=== PATIENT | female | born 1950 | race Hispanic/Latino ===

== ENCOUNTER 2020-03-18 11:21 | Inpatient (IN) | payer OTHER, MEDICARE ==
[~2020-03-18] VITALS: Ht 154.9 cm; Wt 59.0 kg
[2020-03-18] MEDS ORDERED: ZOSYN 3.375GM+NS 50ML 50 ML IV ONE ×2 (12:26→20:49)
[2020-03-18] MEDS ORDERED: 0.9%NACL 1000ML 1,000 ML IV ONE (12:27)
[2020-03-18 12:32] LABS: BASOPHILS % (AUTO) 0.3 % (0.0-5.0); EOSINOPHILS % (AUTO) 0.5 % (0.0-8.0); HEMATOCRIT 35.2 % (36-48); LYMPHOCYTES % (AUTO) 13.3 % (21.0-51.0); MEAN CORPUSCULAR HEMOGLOBIN 26.1 pg (27.0-33.0); MEAN CORPUSCULAR HGB CONC 32.7 g/dL (32.0-36.0); MEAN CORPUSCULAR VOLUME 79.8 fL (79-99); MONOCYTES % (AUTO) 8.2 % (3.0-13.0); NEUTROPHILS % (AUTO) 77.4 % (40.0-77.0); PLATELET COUNT (AUTO) 214 K/uL (130-400); RED BLOOD CELL COUNT(AUTO) 4.41 MIL/uL (4.00-5.50); RED CELL DISTRIBUTION WIDTH 12.9 % (11.0-15.5)
[2020-03-18 12:43] LABS: INR 1.01 (0.85-1.15); PROTHROMBIN TIME 10.8 SEC (9.6-11.6)
[2020-03-18 12:44] LABS: PARTIAL THROMBOPLASTIN TIME 29.1 SEC (26.3-35.5)
[2020-03-18 12:46] LABS: CREATININE 0.8 mg/dL (0.5-1.5); POTASSIUM 4.6 mmol/L (3.5-5.1)
[2020-03-18 12:51] LABS: ALBUMIN 3.3 g/dL (3.5-5.0); BILIRUBIN,TOTAL 0.4 mg/dL (0.2-1.0); TOTAL PROTEIN, SERUM 7.9 g/dL (6.0-8.3)
[2020-03-18] MEDS ORDERED: VANCOMYCIN 1G/250ML KIT 250 ML IV ONE (13:07)
[2020-03-18 13:23] LABS: APPEARANCE,URINE Clear (CLEAR); BILIRUBIN,URINE Negative (NEGATIVE); COLOR,URINE Yellow (YELLOW); GLUCOSE, URINE (UA) >=1000 mg/dL (NEGATIVE); KETONES,URINE Negative (NEGATIVE); LEUKOCYTE ESTERASE ,URINE Moderate (NEGATIVE); NITRATE,URINE Negative (NEGATIVE); OCCULT BLOOD,URINE Negative (NEGATIVE); PROTEIN,URINE Negative (NEGATIVE); UROBILINOGEN,URINE 0.2 mg/dL (0.2-1.0)
[2020-03-18 13:49] LABS: RBC,URINE None Seen /HPF (0-1)
[2020-03-18 13:50] LABS: BACTERIA,URINE Moderate /HPF (None Seen); SQUAMOUS EPITHELIAL CELL,UR Few /HPF (0-2)
[2020-03-18] MEDS ORDERED: DEXTROSE 50%-WATER 50 ML DISP.SYRIN IV PRN (14:00)
[2020-03-18] MEDS ORDERED: ACETAMINOPHEN 325 MG TAB PO PRN (14:00)
[2020-03-18] MEDS ORDERED: GLUCAGON 1MG KIT 1 MG ML IM PRN (14:00)
[2020-03-18] MEDS ORDERED: ONDANSETRON 4MG TABLET PO PRN (14:00)
[2020-03-18] MEDS ORDERED: VANCOMYCIN PROTOCOL PER PHARMACY IV SCH (14:00)
[2020-03-18] MEDS: ZOSYN 3.375GM+NS 50ML 50 ML IV SCH ×2 (14:00→22:00)
[2020-03-18] MEDS ORDERED: COMPOUND IV REFRIGERATED 1 EACH IVSOLN MISC PRN (14:45)
[2020-03-18] MEDS: INSULIN HUMULIN R 100 UNIT/ML 3ML SQ SCH ×2 (16:30→21:00)
[2020-03-18] MEDS ORDERED: INSULIN HUMULIN R 100 UNIT/ML 3ML ONE (20:52)
[2020-03-18] MEDS: VANCOMYCIN 750MG + NS 250 ML IV SCH ×2 (21:00)
[2020-03-18] MEDS ORDERED: ATORVASTATIN 40 MG TABLET ONE (22:30)
[2020-03-18 23:40] VITALS: BP 169/79
[2020-03-19 04:01] VITALS: BP 128/62
[2020-03-19] MEDS: ZOSYN 3.375GM+NS 50ML 50 ML IV SCH ×3 (06:02→20:49)
[2020-03-19] MEDS: INSULIN HUMULIN R 100 UNIT/ML 3ML SQ SCH ×4 (06:08→21:30)
[2020-03-19 06:26] LABS: CREATININE 0.8 mg/dL (0.5-1.5); MAGNESIUM 1.9 mg/dL (1.80-2.40)
[2020-03-19 06:47] LABS: HEMATOCRIT 32.4 % (36-48); MEAN CORPUSCULAR HEMOGLOBIN 26.2 pg (27.0-33.0); MEAN CORPUSCULAR HGB CONC 32.7 g/dL (32.0-36.0); RED BLOOD CELL COUNT(AUTO) 4.05 MIL/uL (4.00-5.50); RED CELL DISTRIBUTION WIDTH 12.9 % (11.0-15.5)
[2020-03-19 07:00] LABS: HEMOGLOBIN A1C 11.5 % (4.0-6.0)
[2020-03-19 07:30] VITALS: BP 133/60
[2020-03-19] MEDS ORDERED: MORPHINE 2 MG SYG IVP PRN (10:00)
[2020-03-19] MEDS: VANCOMYCIN 750MG + NS 250 ML IV SCH ×4 (10:34→20:48)
[2020-03-19] MEDS: PANTOPRAZOLE 40 MG TAB DR PO SCH (10:34)
[2020-03-19] MEDS: ENOXAPARIN SODIUM 30 MG/0.3 ML SQ SCH (10:35)
[2020-03-19] MEDS ORDERED: CALC-866 PO (10:52)
[2020-03-19] MEDS ORDERED: INSU200I4 SQ (10:52)
[2020-03-19] MEDS ORDERED: ZINC50TA64 PO (10:52)
[2020-03-19] MEDS ORDERED: TRAZ-253 PO (10:52)
[2020-03-19] MEDS ORDERED: LOSA25TA41 PO (10:52)
[2020-03-19 11:12] VITALS: BP 137/72
[2020-03-19 16:08] VITALS: BP 141/70
[2020-03-19] MEDS: ASPIRIN 81MG CHEW TAB PO SCH (17:45)
[2020-03-19] MEDS: MAGNESIUM 2GM PREMIX 50ML 50 ML IV PRN (17:48)
[2020-03-19 20:23] VITALS: BP 138/63
[2020-03-19] MEDS: ATORVASTATIN 20 MG TABLET PO SCH (20:49)
[2020-03-19 23:33] VITALS: BP 115/58
[2020-03-20 03:32] VITALS: BP 136/66
[2020-03-20] MEDS: ZOSYN 3.375GM+NS 50ML 50 ML IV SCH ×3 (05:20→21:33)
[2020-03-20 06:11] LABS: HEMATOCRIT 32.6 % (36-48); MEAN CORPUSCULAR HEMOGLOBIN 25.6 pg (27.0-33.0); MEAN CORPUSCULAR HGB CONC 31.9 g/dL (32.0-36.0); MEAN CORPUSCULAR VOLUME 80.3 fL (79-99); RED BLOOD CELL COUNT(AUTO) 4.06 MIL/uL (4.00-5.50); RED CELL DISTRIBUTION WIDTH 12.8 % (11.0-15.5); WHITE BLOOD COUNT (AUTO) 10.7 K/uL (4.8-10.8)
[2020-03-20] MEDS: INSULIN HUMULIN R 100 UNIT/ML 3ML SQ SCH ×4 (06:12→20:36)
[2020-03-20 06:30] LABS: CREATININE 0.8 mg/dL (0.5-1.5); POTASSIUM 4.3 mmol/L (3.5-5.1)
[2020-03-20 07:33] VITALS: BP 108/57
[2020-03-20] MEDS: PANTOPRAZOLE 40 MG TAB DR PO SCH (07:46)
[2020-03-20] MEDS: ASPIRIN 81MG CHEW TAB PO SCH (07:46)
[2020-03-20] MEDS: ENOXAPARIN SODIUM 30 MG/0.3 ML SQ SCH (07:47)
[2020-03-20] MEDS: MAGNESIUM 2GM PREMIX 50ML 50 ML IV PRN (07:48)
[2020-03-20] MEDS: VANCOMYCIN 750MG + NS 250 ML IV SCH ×4 (10:14→20:09)
[2020-03-20 11:19] VITALS: BP 173/78
[2020-03-20 16:00] VITALS: BP 165/72
[2020-03-20] MEDS ORDERED: HYDROMORPHONE 2 MG VIAL (2MG/ML) ONE (19:16)
[2020-03-20 20:00] VITALS: BP 166/60
[2020-03-20] MEDS: ATORVASTATIN 20 MG TABLET PO SCH (20:08)
[2020-03-20] MEDS: HYDROMORPHONE 1 MG INJ IVP PRN ×4 (20:52→23:59)
[2020-03-20 23:46] VITALS: BP 135/55
[2020-03-21] VITALS (12 sets, daily range): BP systolic 107–135; BP diastolic 57–72
[2020-03-21] MEDS: HYDROMORPHONE 1 MG INJ IVP PRN ×5 (01:05→05:06)
[2020-03-21 04:55] LABS: HEMATOCRIT 31.9 % (36-48); MEAN CORPUSCULAR HEMOGLOBIN 25.7 pg (27.0-33.0); MEAN CORPUSCULAR HGB CONC 32.3 g/dL (32.0-36.0); MEAN CORPUSCULAR VOLUME 79.6 fL (79-99); RED BLOOD CELL COUNT(AUTO) 4.01 MIL/uL (4.00-5.50); RED CELL DISTRIBUTION WIDTH 12.6 % (11.0-15.5); WHITE BLOOD COUNT (AUTO) 10.4 K/uL (4.8-10.8)
[2020-03-21 05:07] LABS: CREATININE 0.9 mg/dL (0.5-1.5); POTASSIUM 4.4 mmol/L (3.5-5.1)
[2020-03-21] MEDS: ZOSYN 3.375GM+NS 50ML 50 ML IV SCH ×3 (05:09→20:23)
[2020-03-21] MEDS: INSULIN HUMULIN R 100 UNIT/ML 3ML SQ SCH ×3 (05:50→20:13)
[2020-03-21] MEDS: ENOXAPARIN SODIUM 30 MG/0.3 ML SQ SCH (09:00)
[2020-03-21] MEDS: ASPIRIN 81MG CHEW TAB PO SCH (09:33)
[2020-03-21] MEDS: PANTOPRAZOLE 40 MG TAB DR PO SCH (09:33)
[2020-03-21] MEDS: VANCOMYCIN 750MG + NS 250 ML IV SCH ×4 (09:33→20:59)
[2020-03-21] MEDS ORDERED: NITROGLYCERIN 2 MG VIAL IV ONE (13:07)
[2020-03-21] MEDS ORDERED: NICARDIPINE 25MG INJ IV ONE (13:07)
[2020-03-21] MEDS ORDERED: HEPARIN 10,000 UNIT/10ML (1,000 UNIT/ML) VIAL ONE (13:07)
[2020-03-21] MEDS ORDERED: LIDOCAINE HCL 400MG/20ML VIAL ONE (13:08)
[2020-03-21] MEDS ORDERED: IODIXANOL 320 MG/ML 100 ML VIAL ONE (13:08)
[2020-03-21] MEDS ORDERED: FENTANYL CITRATE PF 50 MCG/1 ML 2ML VIAL ONE (13:08)
[2020-03-21] MEDS ORDERED: MIDAZOLAM HCL 1 MG/ML 2ML VIAL ONE (13:08)
[2020-03-21] MEDS ORDERED: CLOPIDOGREL 300MG TAB ONE (14:55)
[2020-03-21] MEDS ORDERED: LABETALOL 20MG SYG IV ONE (15:40)
[2020-03-21] MEDS ORDERED: 0.9%NACL 1000ML 1,000 ML IV SCH (16:00)
[2020-03-21] MEDS ORDERED: SOLU-MEDROL 125MG VIAL ONE (16:01)
[2020-03-21] MEDS ORDERED: DiphenhydrAMINE HCL 50 MG/ML VIAL ONE (16:01)
[2020-03-21] MEDS: ATORVASTATIN 20 MG TABLET PO SCH (20:23)
[2020-03-22 00:11] VITALS: BP 117/57
[2020-03-22 04:35] VITALS: BP 134/74
[2020-03-22 05:08] LABS: HEMATOCRIT 31.6 % (36-48); MEAN CORPUSCULAR HEMOGLOBIN 25.6 pg (27.0-33.0); MEAN CORPUSCULAR HGB CONC 32.3 g/dL (32.0-36.0); MEAN CORPUSCULAR VOLUME 79.4 fL (79-99); RED BLOOD CELL COUNT(AUTO) 3.98 MIL/uL (4.00-5.50); RED CELL DISTRIBUTION WIDTH 12.6 % (11.0-15.5); WHITE BLOOD COUNT (AUTO) 14.2 K/uL (4.8-10.8)
[2020-03-22] MEDS: ZOSYN 3.375GM+NS 50ML 50 ML IV SCH ×3 (05:41→22:16)
[2020-03-22 05:53] LABS: CREATININE 1.2 mg/dL (0.5-1.5); POTASSIUM 4.9 mmol/L (3.5-5.1)
[2020-03-22] MEDS: INSULIN HUMULIN R 100 UNIT/ML 3ML SQ SCH ×5 (05:55→20:06)
[2020-03-22] MEDS: INSULIN GLARGINE 100 UNITS/ML 10 ML VIAL SQ SCH (06:42)
[2020-03-22 08:00] VITALS: BP 139/74
[2020-03-22] MEDS: ASPIRIN 81MG CHEW TAB PO SCH (09:19)
[2020-03-22] MEDS: CLOPIDOGREL 75MG TAB PO SCH (09:19)
[2020-03-22] MEDS: PANTOPRAZOLE 40 MG TAB DR PO SCH (09:19)
[2020-03-22] MEDS: ENOXAPARIN SODIUM 30 MG/0.3 ML SQ SCH (09:20)
[2020-03-22 12:00] VITALS: BP 139/66
[2020-03-22] MEDS: VANCOMYCIN 750MG + NS 250 ML IV SCH ×4 (12:03→20:09)
[2020-03-22 16:00] VITALS: BP 167/83
[2020-03-22] MEDS ORDERED: DiphenhydrAMINE HCL 50 MG/ML VIAL IVP PRN (16:30)
[2020-03-22] MEDS ORDERED: SOLU-MEDROL 125MG VIAL IVP PRN (16:30)
[2020-03-22] MEDS: AMLODIPINE 5 MG TAB PO SCH (17:45)
[2020-03-22] MEDS ORDERED: CLONIDINE HCL 0.1 MG TABLET PO PRN (17:45)
[2020-03-22] MEDS ORDERED: AMLODIPINE 5 MG TAB ONE (17:53)
[2020-03-22 20:00] VITALS: BP 147/78
[2020-03-22] MEDS: ATORVASTATIN 20 MG TABLET PO SCH (20:08)
[2020-03-22] MEDS: LACTATED RINGERS 1000ML 1,000 ML IV SCH (22:16)
[2020-03-23] VITALS (8 sets, daily range): BP systolic 88–158; BP diastolic 55–89
[2020-03-23 03:58] LABS: HEMATOCRIT 28.6 % (36-48); MEAN CORPUSCULAR HEMOGLOBIN 26.4 pg (27.0-33.0); MEAN CORPUSCULAR HGB CONC 33.2 g/dL (32.0-36.0); MEAN CORPUSCULAR VOLUME 79.4 fL (79-99); RED BLOOD CELL COUNT(AUTO) 3.6 MIL/uL (4.00-5.50); RED CELL DISTRIBUTION WIDTH 12.8 % (11.0-15.5); WHITE BLOOD COUNT (AUTO) 11.8 K/uL (4.8-10.8)
[2020-03-23 04:12] LABS: INR 1.04 (0.85-1.15); PROTHROMBIN TIME 11.1 SEC (9.6-11.6)
[2020-03-23 04:14] LABS: PARTIAL THROMBOPLASTIN TIME 25.4 SEC (26.3-35.5)
[2020-03-23 04:16] LABS: CREATININE 0.8 mg/dL (0.5-1.5); POTASSIUM 4.2 mmol/L (3.5-5.1)
[2020-03-23] MEDS: ZOSYN 3.375GM+NS 50ML 50 ML IV SCH ×3 (05:13→20:33)
[2020-03-23] MEDS: INSULIN HUMULIN R 100 UNIT/ML 3ML SQ SCH ×4 (05:37→20:09)
[2020-03-23] MEDS ORDERED: NITROGLYCERIN 2 MG VIAL IV ONE (07:28)
[2020-03-23] MEDS ORDERED: HEPARIN 10,000 UNIT/10ML (1,000 UNIT/ML) VIAL ONE (07:28)
[2020-03-23] MEDS ORDERED: MIDAZOLAM HCL 1 MG/ML 2ML VIAL ONE (07:28)
[2020-03-23] MEDS ORDERED: NICARDIPINE 25MG INJ IV ONE (07:28)
[2020-03-23] MEDS ORDERED: FENTANYL CITRATE PF 50 MCG/1 ML 2ML VIAL ONE (07:28)
[2020-03-23] MEDS ORDERED: LIDOCAINE HCL 400MG/20ML VIAL ONE (07:29)
[2020-03-23] MEDS ORDERED: IODIXANOL 320 MG/ML 100 ML VIAL ONE (07:29)
[2020-03-23] MEDS: LACTATED RINGERS 1000ML 1,000 ML IV SCH ×2 (07:45→17:05)
[2020-03-23] MEDS: INSULIN GLARGINE 100 UNITS/ML 10 ML VIAL SQ SCH (07:52)
[2020-03-23] MEDS: AMLODIPINE 5 MG TAB PO SCH (07:52)
[2020-03-23] MEDS: PANTOPRAZOLE 40 MG TAB DR PO SCH (07:52)
[2020-03-23] MEDS: CLOPIDOGREL 75MG TAB PO SCH (07:52)
[2020-03-23] MEDS: ENOXAPARIN SODIUM 30 MG/0.3 ML SQ SCH (07:52)
[2020-03-23] MEDS: ASPIRIN 81MG CHEW TAB PO SCH (07:52)
[2020-03-23] MEDS ORDERED: SOLU-MEDROL 125MG VIAL ONE (07:54)
[2020-03-23] MEDS ORDERED: DiphenhydrAMINE HCL 50 MG/ML VIAL ONE (07:54)
[2020-03-23] MEDS ORDERED: CLOPIDOGREL 300MG TAB ONE (08:32)
[2020-03-23] MEDS: VANCOMYCIN 750MG + NS 250 ML IV SCH ×4 (09:00→20:01)
[2020-03-23] MEDS ORDERED: LABETALOL 20MG SYG IV ONE (09:02)
[2020-03-23] MEDS ORDERED: ASPIRIN 325MG EC TAB PO ONE (09:09)
[2020-03-23] MEDS ORDERED: 0.9%NACL 1000ML 1,000 ML IV SCH (09:15)
[2020-03-23] MEDS ORDERED: VANCOMYCIN 750MG + NS 250 ML IV SCH ×2 (11:30)
[2020-03-23] MEDS: ATORVASTATIN 20 MG TABLET PO SCH (20:01)
[2020-03-24 00:06] VITALS: BP 137/66
[2020-03-24] MEDS: LACTATED RINGERS 1000ML 1,000 ML IV SCH (02:11)
[2020-03-24 04:01] LABS: HEMATOCRIT 26.5 % (36-48); MEAN CORPUSCULAR HEMOGLOBIN 25.2 pg (27.0-33.0); MEAN CORPUSCULAR HGB CONC 31.7 g/dL (32.0-36.0); MEAN CORPUSCULAR VOLUME 79.6 fL (79-99); RED BLOOD CELL COUNT(AUTO) 3.33 MIL/uL (4.00-5.50); RED CELL DISTRIBUTION WIDTH 12.7 % (11.0-15.5); WHITE BLOOD COUNT (AUTO) 12.2 K/uL (4.8-10.8)
[2020-03-24 04:13] LABS: CREATININE 0.9 mg/dL (0.5-1.5); POTASSIUM 4.1 mmol/L (3.5-5.1)
[2020-03-24] MEDS: ZOSYN 3.375GM+NS 50ML 50 ML IV SCH (05:01)
[2020-03-24 05:33] VITALS: BP 133/71
[2020-03-24] MEDS: INSULIN HUMULIN R 100 UNIT/ML 3ML SQ SCH (06:09)
[2020-03-24 07:00] VITALS: BP 151/73
[2020-03-26] MEDS ORDERED: AMOX-429 PO (23:08)
[2020-03-28] MEDS ORDERED: CLOP75TA14 PO (15:01)
[2020-03-28] MEDS ORDERED: AEC81 PO (15:01)
== END 2020-03-24 07:50 | disposition left against medical advice (07) | DRG 253 ==
LOC: EDH 11:21 → EDHIP 13:56 → OBSVTOIN 13:56 → 3CH 23:07 → 4CH 03-21 17:00
PROVIDERS: ADMIT Internal Medicine Pulmonary Disease; ATTEND Internal Medicine Pulmonary Disease
PROC: 0JBQ0ZZ Excision of Right Foot Subcutaneous Tissue and Fascia, Open Approach (ICD-10-PCS; 2020-03-18)
PROC: 047C3DZ Dilation of Right Common Iliac Artery with Intraluminal Device, Percutaneous Approach (ICD-10-PCS; principal; 2020-03-21)
PROC: 04FC3ZZ Fragmentation of Right Common Iliac Artery, Percutaneous Approach (ICD-10-PCS; 2020-03-21)
PROC: B41DYZZ Fluoroscopy of Aorta and Bilateral Lower Extremity Arteries using Other Contrast (ICD-10-PCS; 2020-03-21)
PROC: 047P3ZZ Dilation of Right Anterior Tibial Artery, Percutaneous Approach (ICD-10-PCS; 2020-03-23)
PROC: 04FP3ZZ Fragmentation of Right Anterior Tibial Artery, Percutaneous Approach (ICD-10-PCS; 2020-03-23)
PROC: B41FYZZ Fluoroscopy of Right Lower Extremity Arteries using Other Contrast (ICD-10-PCS; 2020-03-23)
DX: E11.52 Type 2 diabetes mellitus with diabetic peripheral angiopathy with gangrene (principal); I70.261 Atherosclerosis of native arteries of extremities with gangrene, right leg; L03.115 Cellulitis of right lower limb; E11.622 Type 2 diabetes mellitus with other skin ulcer; E11.621 Type 2 diabetes mellitus with foot ulcer; I10 Essential (primary) hypertension; L97.519 Non-pressure chronic ulcer of other part of right foot with unspecified severity; E11.40 Type 2 diabetes mellitus with diabetic neuropathy, unspecified; E78.5 Hyperlipidemia, unspecified; M77.31 Calcaneal spur, right foot; I70.202 Unspecified atherosclerosis of native arteries of extremities, left leg; I99.8 Other disorder of circulatory system; I70.8 Atherosclerosis of other arteries; F32.9 Major depressive disorder, single episode, unspecified; Z20.822 Contact with and (suspected) exposure to COVID-19; F41.9 Anxiety disorder, unspecified; E78.00 Pure hypercholesterolemia, unspecified; Z89.412 Acquired absence of left great toe; Z90.49 Acquired absence of other specified parts of digestive tract; Z98.51 Tubal ligation status; Z83.3 Family history of diabetes mellitus; Z82.49 Family history of ischemic heart disease and other diseases of the circulatory system; Z79.899 Other long term (current) drug therapy
CPT/HCPCS: 36415; 71045; 73630; 73718; 75716; 80048; 80053; 80202; 81001; 82550; 82948; 83036; 83605; 83735; 84484; 85025; 85027; 85347; 85610; 85730; 87040; 87070; 87076; 87077; 87088; 87186; 87426; 93005; 93925; 99156; 99157; 99291; C1769; C1894; C9765; C9772; G0378; J1170; J1200; J1644; J1650; J1815; J2250; J2543; J2930; J3010; J3370; J3475; J3490; J7030; J7050; J7120; Q9967; U0003

== ENCOUNTER 2020-03-24 17:25 | Emergency (ER) | payer OTHER, MEDICARE ==
[~2020-03-24 17:25] MED LIST: CALC-866 PO; INSU200I4 SQ; LOSA25TA41 PO; TRAZ-253 PO; ZINC50TA64 PO
[2020-03-24] MEDS ORDERED: LIDOCAINE HCL 2% VISCOUS 15 ML UDCUP ONE (18:12)
[2020-03-26] MEDS ORDERED: AMOX-429 PO (23:08)
[2020-03-28] MEDS ORDERED: CLOP75TA14 PO (15:01)
[2020-03-28] MEDS ORDERED: AEC81 PO (15:01)
== END 2020-03-24 19:22 | disposition home or self-care (01) ==
LOC: EDH 17:25
DX: R04.0 Epistaxis (principal); E11.9 Type 2 diabetes mellitus without complications; I10 Essential (primary) hypertension
CPT/HCPCS: 30905

== ENCOUNTER 2020-03-26 09:11 | Inpatient (IN) | payer OTHER, MEDICARE ==
[~2020-03-26] VITALS: Ht 154.9 cm; Wt 56.4 kg
[2020-03-26] MEDS ORDERED: ASPIRIN 325 MG TABLET ONE (09:19)
[2020-03-26 09:36] LABS: BASOPHILS % (AUTO) 0.3 % (0.0-5.0); EOSINOPHILS % (AUTO) 0.3 % (0.0-8.0); HEMATOCRIT 31.3 % (36-48); MEAN CORPUSCULAR HEMOGLOBIN 25.9 pg (27.0-33.0); MEAN CORPUSCULAR HGB CONC 32.9 g/dL (32.0-36.0); MEAN CORPUSCULAR VOLUME 78.8 fL (79-99); MONOCYTES % (AUTO) 6.1 % (3.0-13.0); NEUTROPHILS % (AUTO) 83.7 % (40.0-77.0); PLATELET COUNT (AUTO) 253 K/uL (130-400); RED BLOOD CELL COUNT(AUTO) 3.97 MIL/uL (4.00-5.50); RED CELL DISTRIBUTION WIDTH 12.6 % (11.0-15.5); WHITE BLOOD COUNT (AUTO) 17.3 K/uL (4.8-10.8)
[2020-03-26 09:48] LABS: CREATININE 0.2 mg/dL (0.5-1.5); POTASSIUM 3.5 mmol/L (3.5-5.1)
[2020-03-26 09:51] LABS: ALBUMIN 3.3 g/dL (3.5-5.0); BILIRUBIN,TOTAL 0.5 mg/dL (0.2-1.0); TOTAL PROTEIN, SERUM 7.7 g/dL (6.0-8.3)
[2020-03-26 09:52] LABS: INR 1.01 (0.85-1.15)
[2020-03-26 09:53] LABS: PARTIAL THROMBOPLASTIN TIME 27.2 SEC (26.3-35.5)
[2020-03-26] MEDS ORDERED: CLOPIDOGREL 300MG TAB ONE (11:18)
[2020-03-26 14:10] LABS: APPEARANCE,URINE Clear (CLEAR); BILIRUBIN,URINE Negative (NEGATIVE); COLOR,URINE Yellow (YELLOW); GLUCOSE, URINE (UA) Negative (NEGATIVE); KETONES,URINE Trace mg/dL (NEGATIVE); LEUKOCYTE ESTERASE ,URINE Moderate (NEGATIVE); NITRATE,URINE Negative (NEGATIVE); OCCULT BLOOD,URINE Negative (NEGATIVE); PROTEIN,URINE Negative (NEGATIVE); UROBILINOGEN,URINE 0.2 mg/dL (0.2-1.0)
[2020-03-26 14:21] LABS: BACTERIA,URINE Few /HPF (None Seen); RBC,URINE None Seen /HPF (0-1); SQUAMOUS EPITHELIAL CELL,UR Few /HPF (0-2)
[2020-03-26] MEDS ORDERED: GLUCAGON 1MG KIT 1 MG ML IM PRN (14:30)
[2020-03-26] MEDS ORDERED: POTASSIUM CHLORIDE 10% ELIXIR 20 MEQ/15 ML UDCUP PO PRN (14:30)
[2020-03-26] MEDS ORDERED: LIDOCAINE HCL-MPF 1% 2ML VIAL IV PRN (14:30)
[2020-03-26] MEDS ORDERED: ACETAMINOPHEN 325 MG TAB PO PRN (14:30)
[2020-03-26] MEDS: ZOSYN 3.375GM+NS 50ML 50 ML IV SCH ×2 (14:30→22:50)
[2020-03-26] MEDS ORDERED: DEXTROSE 50%-WATER 50 ML DISP.SYRIN IV PRN (14:30)
[2020-03-26] MEDS ORDERED: MAGNESIUM 2GM PREMIX 50ML 50 ML IV PRN (14:30)
[2020-03-26] MEDS ORDERED: MORPHINE 2 MG SYG IVP PRN (14:30)
[2020-03-26] MEDS ORDERED: POTASSIUM CHLORIDE 20MEQ/100ML 100 ML IV PRN (14:30)
[2020-03-26] MEDS ORDERED: ONDANSETRON 4MG INJ IVP PRN (14:30)
[2020-03-26] MEDS ORDERED: ZOSYN 3.375GM+NS 50ML 50 ML IV ONE (15:20)
[2020-03-26] MEDS: INSULIN HUMULIN R 100 UNIT/ML 3ML SQ SCH ×2 (16:30→23:04)
[2020-03-26 20:19] VITALS: BP 141/71
[2020-03-26] MEDS ORDERED: AEC81 PO (23:08)
[2020-03-26] MEDS ORDERED: AMOX-429 PO ×2 (23:08)
[2020-03-26 23:42] VITALS: BP 134/69
[2020-03-26] MEDS ORDERED: TRAZODONE HCL 50 MG TAB ONE (23:53)
[2020-03-26] MEDS: KCL 20 MEQ ERTAB PO PRN (23:59)
[2020-03-27] VITALS (21 sets, daily range): BP systolic 116–154; BP diastolic 46–72
[2020-03-27] MEDS: KCL 20 MEQ ERTAB PO PRN (01:57)
[2020-03-27 06:23] LABS: HEMATOCRIT 27.7 % (36-48); MEAN CORPUSCULAR HGB CONC 32.9 g/dL (32.0-36.0); MEAN CORPUSCULAR VOLUME 79.1 fL (79-99); RED BLOOD CELL COUNT(AUTO) 3.5 MIL/uL (4.00-5.50); RED CELL DISTRIBUTION WIDTH 12.9 % (11.0-15.5); WHITE BLOOD COUNT (AUTO) 14.8 K/uL (4.8-10.8)
[2020-03-27 06:42] LABS: CREATININE 0.7 mg/dL (0.5-1.5)
[2020-03-27] MEDS: ZOSYN 3.375GM+NS 50ML 50 ML IV SCH ×3 (06:42→22:05)
[2020-03-27] MEDS: INSULIN HUMULIN R 100 UNIT/ML 3ML SQ SCH ×4 (06:42→19:37)
[2020-03-27] MEDS ORDERED: BUPIVACAINE/PF 0.5% 30ML VIAL ONE (06:57)
[2020-03-27] MEDS ORDERED: LIDOCAINE HCL 1% 20 ML VIAL ONE (06:57)
[2020-03-27] MEDS ORDERED: MIDAZOLAM HCL 1 MG/ML 2ML VIAL ONE (07:00)
[2020-03-27] MEDS ORDERED: LIDOCAINE PF 100MG/5ML (2%) SYRINGE 5ML ONE (07:00)
[2020-03-27] MEDS ORDERED: PROPOFOL 10 MG/ML 20ML VIAL IV ONE (07:00)
[2020-03-27] MEDS: PANTOPRAZOLE 40 MG TAB DR PO SCH (10:21)
[2020-03-27] MEDS ORDERED: VANCOMYCIN PROTOCOL PER PHARMACY IV SCH (14:30)
[2020-03-27] MEDS ORDERED: COMPOUND IV REFRIGERATED 1 EACH IVSOLN MISC PRN (18:00)
[2020-03-27] MEDS: VANCOMYCIN 1G/250ML KIT 250 ML IV SCH (18:34)
[2020-03-27] MEDS: TRAZODONE HCL 50 MG TAB PO SCH ×3 (21:00→22:05)
[2020-03-28] VITALS (7 sets, daily range): BP systolic 130–161; BP diastolic 59–68
[2020-03-28] MEDS: INSULIN HUMULIN R 100 UNIT/ML 3ML SQ SCH ×4 (05:37→20:18)
[2020-03-28 05:51] LABS: HEMATOCRIT 27.2 % (36-48); MEAN CORPUSCULAR HEMOGLOBIN 25.5 pg (27.0-33.0); MEAN CORPUSCULAR HGB CONC 31.3 g/dL (32.0-36.0); MEAN CORPUSCULAR VOLUME 81.7 fL (79-99); RED BLOOD CELL COUNT(AUTO) 3.33 MIL/uL (4.00-5.50); WHITE BLOOD COUNT (AUTO) 15.1 K/uL (4.8-10.8)
[2020-03-28] MEDS: ZOSYN 3.375GM+NS 50ML 50 ML IV SCH ×3 (05:52→22:54)
[2020-03-28] MEDS ORDERED: VANCOMYCIN 500MG+NS 100ML 100 ML IV SCH (06:00)
[2020-03-28 06:25] LABS: CREATININE 0.8 mg/dL (0.5-1.5); POTASSIUM 4.3 mmol/L (3.5-5.1)
[2020-03-28] MEDS: VANCOMYCIN 1G/250ML KIT 250 ML IV SCH (07:28)
[2020-03-28] MEDS: PANTOPRAZOLE 40 MG TAB DR PO SCH (07:51)
[2020-03-28] MEDS: LACTULOSE 20 GM/30 ML UDCUP PO PRN (07:57)
[2020-03-28] MEDS: VANCOMYCIN 500MG+NS 100ML 100 ML IV SCH ×2 (12:29→22:59)
[2020-03-28] MEDS ORDERED: CLOP75TA14 PO ×2 (15:01)
[2020-03-28] MEDS ORDERED: AEC81 PO ×2 (15:01)
[2020-03-28] MEDS: TRAZODONE HCL 50 MG TAB PO SCH (20:21)
[2020-03-29 03:54] VITALS: BP 147/64
[2020-03-29] MEDS: ZOSYN 3.375GM+NS 50ML 50 ML IV SCH ×3 (05:39→16:43)
[2020-03-29] MEDS: LACTULOSE 20 GM/30 ML UDCUP PO PRN (05:39)
[2020-03-29] MEDS: INSULIN HUMULIN R 100 UNIT/ML 3ML SQ SCH (05:40)
[2020-03-29 07:41] VITALS: BP 121/65
[2020-03-29] MEDS: PANTOPRAZOLE 40 MG TAB DR PO SCH (09:14)
[2020-03-29 11:12] VITALS: BP 147/61
[2020-03-29] MEDS ORDERED: VANCOMYCIN 1G 1.25 GM in 0.9% NACL 250ML 250 ML IV ONE (17:00)
[2020-03-30] MEDS ORDERED: VANCOMYCIN 750MG + NS 250 ML IV SCH ×2 (06:00)
== END 2020-03-29 16:40 | disposition home health service (06) | DRG 617 ==
LOC: EDH 09:11 → OBSVTOIN 14:18 → EDHIP 14:18 → 3DH 20:27
PROVIDERS: ADMIT Internal Medicine Critical Care Medicine; ATTEND Internal Medicine Critical Care Medicine
PROC: 0Y6T0Z0 Detachment at Right 3rd Toe, Complete, Open Approach (ICD-10-PCS; 2020-03-27)
PROC: 0JBQ0ZZ Excision of Right Foot Subcutaneous Tissue and Fascia, Open Approach (ICD-10-PCS; 2020-03-27)
PROC: 0Y6R0Z0 Detachment at Right 2nd Toe, Complete, Open Approach (ICD-10-PCS; principal; 2020-03-27 07:10)
DX: E11.621 Type 2 diabetes mellitus with foot ulcer (principal); E11.52 Type 2 diabetes mellitus with diabetic peripheral angiopathy with gangrene; L03.115 Cellulitis of right lower limb; L97.519 Non-pressure chronic ulcer of other part of right foot with unspecified severity; I10 Essential (primary) hypertension; E66.9 Obesity, unspecified; F41.9 Anxiety disorder, unspecified; F32.9 Major depressive disorder, single episode, unspecified; D72.829 Elevated white blood cell count, unspecified; E78.5 Hyperlipidemia, unspecified; K59.00 Constipation, unspecified; D64.9 Anemia, unspecified; Z68.23 Body mass index [BMI] 23.0-23.9, adult; Z95.5 Presence of coronary angioplasty implant and graft; Z89.412 Acquired absence of left great toe
CPT/HCPCS: 30905; 36415; 71045; 80048; 80053; 80202; 81001; 82550; 82948; 84145; 84484; 85025; 85027; 85610; 85651; 85730; 86140; 87070; 87076; 87077; 87088; 87186; 87205; 93005; G0378; J1815; J2001; J2250; J2543; J2704; J3370; J3490; J7050; J7120

== ENCOUNTER → 2023-12-31 | Outpatient (CLI) | payer OTHER, MEDICAID ==
[~2023-12-31] MED LIST changes: +AEC81 PO; +AMOX-429 PO; +CLOP-31 PO; -ZINC50TA64 PO
== END | disposition home or self-care (01) ==
LOC: RAH 13:48
PROVIDERS: ATTEND Family Medicine
DX: R92.1 Mammographic calcification found on diagnostic imaging of breast (principal); Z80.3 Family history of malignant neoplasm of breast
CPT/HCPCS: 76641; 77065

== ENCOUNTER → 2024-01-29 | Outpatient (CLI) | payer OTHER, MEDICARE ==
[~2024-01-29] MED LIST changes: +GADOTERATE MEGLUMINE 10 MMOL/20 ML VIAL IV ONE
--- NOTE | 2024-01-29 16:44 | HMCIMG ---
MRI BREAST [facility] HISTORY: Mammographic calcifications COMPARISON: Mammogram and ultrasound from December 31, 2023 TECHNIQUE: MRI of the bilateral breasts was performed utilizing multiple pulse sequences in axial, coronal and sagittal planes. Patient was given 20 cc of Clariscan through intravenous route. Dynamic imaging technique was used. FINDINGS: Heterogeneous dense fibroglandular tissues are seen bilaterally. No evidence of nipple retraction or skin thickening is seen. No MR evidence of mass lesion or abnormal enhancement is seen. Due to mammographic findings, six-month follow-up study is recommended. IMPRESSION: 1. No acute findings. Due to mammographic findings, six-month follow-up study with mammogram is recommended.
== END | disposition home or self-care (01) ==
LOC: RAH 12:50
PROVIDERS: ATTEND Family Medicine
DX: R92.323 Mammographic fibroglandular density, bilateral breasts (principal); R92.333 Mammographic heterogeneous density, bilateral breasts; R92.1 Mammographic calcification found on diagnostic imaging of breast; Z80.3 Family history of malignant neoplasm of breast
CPT/HCPCS: C8908; A9575; 77049

== ENCOUNTER 2024-03-19 13:11 | Emergency (ER) | payer OTHER, MEDICARE ==
[~2024-03-19] VITALS: Ht 154.9 cm; Wt 47.6 kg
[~2024-03-19 13:11] MED LIST changes: -GADOTERATE MEGLUMINE 10 MMOL/20 ML VIAL IV ONE
--- NOTE | 2024-03-19 13:48 | ERN ---
ED Note History of Present Illness Stated Complaint: MECHANICAL FALL Chief Complaint: Mechanical Fall Time Seen by MD: 13:15 Dictation: PATIENT IS A 73-YEAR-OLD FEMALE COMING IN TODAY WITH COMPLAINTS OF RIGHT ANTERIOR KNEE PAIN STATUS POST A TRIP FALL LAST NIGHT. SHE STATES SHE WAS TRYING TO TURN ON HER LIGHT TO FIND HER CATS, TRIPPED ON FELL ON HER RIGHT KNEE. NO BLOOD THINNERS NO HIP PAIN SHE IS AMBULATORY WITH ANTALGIC GAIT. HAS NOT TAKEN ANYTHING TODAY PRIOR TO ARRIVAL FOR PAIN. NO SHORTENING OR ROTATION OF RIGHT LEG NO TRAUMA ALERT CRITERIA Allergies: Coded Allergies: No Known Drug Allergies (Verified Allergy, Unknown, 03/18/20) Home Meds Active Scripts Clopidogrel Bisulfate (Plavix) 75 Mg Tablet, 75 MG PO DAILY for 30 Days, #30 TAB start after 03/29/20 Prov:PONCHO SIEGEL 03/28/20 Aspirin (ASPIRIN 81 MG ECTAB) 81 Mg Ectab, 81 MG PO DAILY, #30 TAB.EC start after 03/29/20 Prov:PONCHO SIEGEL 03/28/20 Reported Medications Amoxicillin/Potassium Clav (Augmentin 875-125 Tablet) 1 Each Tablet, 1 EACH PO BID, TAB 03/26/20 Losartan Potassium (Losartan Potassium) 25 Mg Tablet, 25 MG PO DAILY 03/19/20 Cholecalciferol (Vitamin D3) (Vitamin D3) 125 Mcg Tablet, 125 MCG PO DAILY, TAB 03/19/20 Trazodone HCl (Desyrel) 50 Mg Tab, 50 MG PO HS 03/19/20 Insulin Degludec (Tresiba Flextouch U-200) 200 Unit/1 Ml Insuln.pen, 52 UNITS SQ DAILY 03/19/20 Past Medical History History: Not Applicable RN Note Reviewed/Agreed w/PFSH: Yes Review of System Dictation CONSTITUTIONAL: NEGATIVE EXCEPT FOR HPI HEAD/FACE: NEGATIVE EXCEPT FOR HPI EENT: NEGATIVE EXCEPT FOR HPI RESPIRATORY: NEGATIVE EXCEPT FOR HPI GASTROINTESTINAL/ABDOMINAL: NEGATIVE EXCEPT FOR HPI GENITOURINARY: NEGATIVE EXCEPT FOR HPI MUSCULOSKELETAL: NEGATIVE EXCEPT FOR HPI RIGHT ANTERIOR KNEE PAIN INTEGUMENTARY: NEGATIVE EXCEPT FOR HPI NEUROLOGICAL/PSYCH: NEGATIVE EXCEPT FOR HPI HEMATOLOGIC/LYMPHATIC: NEGATIVE EXCEPT FOR HPI ALL SYSTEMS NEGATIVE, EXCEPT NOTED ABOVE. 13 POINT REVIEW OF SYSTEMS ASSESSED AND ALL NEGATIVE EXCEPT FOR ABOVE. Initial Vital Sign VS Vital Signs Date Time Temp Pulse Resp B/P (MAP) Pulse Ox O2 Delivery O2 Flow Rate FiO2 03/19/24 13:50 98.2 92 18 169/91 98 03/19/24 14:35 Room Air* 0 21 Physical Exam Dictation VITAL SIGNS REVIEWED GENERAL APPEARANCE: ALERT, ORIENTED X 3, MODERATE ACUTE DISTRESS, WELL DE VELOPED, NOURISHED. HEAD AND FACE: NON-TRAUMATIC. EYES: PERRL, PINK CONJUNCTIVAS, EYELID NO TRAUMA, ANTERIOR CHAMBER WITH ARCUS SENILIS. EARS: PINNAS INTACT AND NO SIGNS OF TRAUMA OR ERYTHEMA EAR CANALS CLEAR AND NO DISCHARGE TM NO ERYTHEMA NOSE: NO DISCHARGE, NO BLEEDING. OROPHARYNX: MOUTH NORMAL, TONGUE PINK, PHARYNX CLEAR,NO ERYTHEMA, TONSILS NO EXUDATES, NO ABSCESSES NOTED, MUCOUS MEMBRANE MOIST NECK: SUPPLE, NON-TENDER, NO THYROMEGALY, NO MASSES, NO JVD, NO BRUITS BREAST:DEFERRED CHEST:NO TENDERNESS, NO CREPITUS, NO PARADOXICAL MOVEMENT, NO RETRACTIONS LUNGS:CLEAR, WELL-VENTILATED, SYMMETRIC, NO RALES, NO WHEEZING, NO RHONCHI, NO STRIDOR, GOOD BREATH SOUNDS BILATERALLY HEART: REGULAR RATE, REGULAR RHYTHM, NO MURMUR, NO GALLOPS VASCULAR: NO PERIPHERAL EDEMA, ABDOMEN: SOFT, POSITIVE BOWEL SOUNDS, NONDISTENDED, NO GUARDING, NONTENDER, NO REBOUND, NO MASSES NO HEPATOMEGALY, NO SPLENOMEGALY, NO VANESSA'S SIGN, NO HERNIAS. RECTAL: DEFERRED GENITAL: DEFERRED NEUROLOGICAL: NORMAL SPEECH, MOTOR FUNCTION INTACT, SENSORY FUNCTION INTACT MUSCULOSKELETAL: NECK NONTENDER, FULL RANGE OF MOTION, BACK NONTENDER, FULL RANGE OF MOTION, EXTREMITIES: RIGHT ANTERIOR KNEE PAIN WITH DECREASED ROM SECONDARY TO PAIN. PATELLA GROSSLY INTACT NO SHORTENING OR ROTATION, NO HIP OR PELVIC PAIN. SKIN: COLOR PINK, DRY, NO TURGOR, NO RASH, NO LACERATIONS, NO ABRASIONS, NO CONT USIONS. LYMPHATIC: DEFERRED Results (Laboratory/Radiology) Laboratory/Radiology KNEE 3VWS RT HISTORY: Right anterior knee pain COMPARISON: None TECHNIQUE: 3 images of right knee were obtained. FINDINGS: There is no acute displaced fracture or dislocation. There is soft tissue swelling. Degenerative changes are seen. IMPRESSION: 1. Findings as described above. PELVIS 1-2VWS HISTORY: Pain COMPARISON: None TECHNIQUE: Frontal projection of the pelvis was obtained. FINDINGS: Vascular calcifications are seen in the bilateral hip joint space narrowing are seen There is no acute displaced fracture or dislocation. Degenerative changes are seen. IMPRESSION: 1. Findings as described above. Labs Reviewed?: Yes ED Course ED Course Orders Procedure Category Date Status Time Acetaminophen With PHA 03/19/24 Complete Codeine (Tylenol-Code 14:00 Knee 3vws Rt RAD 03/19/24 Resulted 13:43 Pelvis 1-2vws RAD 03/19/24 Resulted 13:48 Current Medications Medications (Trade) Dose Ordered Sig/Sam Route PRN Reason Start Time Stop Time Status Last Admin Dose Admin Acetaminophen/ Codeine Phosphate (TYLenol-coDEINE TAB) 2 tab ONCE ONCE PO 03/19/24 14:00 03/19/24 14:01 DC 03/19/24 14:32 Vital Signs Date Time Temp Pulse Resp B/P (MAP) Pulse Ox O2 Delivery O2 Flow Rate FiO2 03/19/24 14:35 98.1 78 18 162/87 98 Room Air* 0 21 03/19/24 13:50 98.2 92 18 169/91 98 1455-PATIENT STATES PAIN MARKEDLY IMPROVED AFTER TYLENOL WITH CODEINE WE WILL BE DISCHARGED HOME TO FOLLOW UP WITH HER PRIMARY CARE DOCTOR IN 1-2 DAYS. APPLY COOL COMPRESSES SEVERAL TIMES A DAY AND WE WILL BE GIVEN TYLENOL WITH CODEINE FOR SEVERE PAIN Medical Decision Making MDM MEDICAL DISCHARGE MAKING BASED ON X-RAYS PELVIS AND RIGHT KNEE STATUS POST SAME LEVEL FALL X-RAYS READ NEGATIVE BY RADIOLOGIST PATIENT DISCHARGED HOME WITH CONTUSION TOLD ACTIVITY TOLERATED TAKE TYLENOL NO. 3 FOR SEVERE PAIN AND SEE HER DOCTOR. DX & DISP Disposition: Discharge Departure Impression: Primary Impression: Contusion of right knee, initial encounter Additional Impression: Fall Condition: Stable Scripts Acetaminophen with Codeine (Acetaminophen-Cod #3 Tablet) 300 Mg-30 Mg Tablet 1 TAB PO Q4H PRN for MODERATE TO SEVERE PAIN, #10 TAB 0 Refills Prov: REBECCA HUMMEL HOME THERAPY CLINICIAN 03/19/24 Additional Instructions: Follow-up with primary care provider in 1 to 2 days. Take medications as directed here in the emergency room. Okay to continue home medications unless otherwise discussed during your visit in the emergency room today. Return to your nearest emergency room if symptoms worsen or if there is no improvement. Call 911 if you need immediate assistance. Take Tylenol or Motrin [id number] as needed and if no contraindications are present. Increase oral hydration. A wound culture or urine culture was ordered here in the emergency room department please follow-up with primary care provider and advise them to get repeat ports from our facility. If you had any Arthur wrap/splints that were applied here, please do not remove them until you see your primary care or specialty. Cool compresses to pain several times a day. Activity as tolerated. Call orthopedic surgeon in the next 1-2 days if pain gets worse Referrals: FRANK DOUGLAS MD (PCP) FRANK ROTH MD Time of Disposition: 14:57 I have reviewed the case, and I agree with, Diagnosis and Plan REBECCA HUMMEL NP Mar 19, 2024 13:48
[2024-03-19] MEDS: acetaMINOPHEN WITH coDEINE 1 TAB TAB PO ONE (14:32)
--- NOTE | 2024-03-19 14:32 | HMCIMG ---
KNEE 3VWS RT HISTORY: Right anterior knee pain COMPARISON: None TECHNIQUE: 3 images of right knee were obtained. FINDINGS: There is no acute displaced fracture or dislocation. There is soft tissue swelling. Degenerative changes are seen. IMPRESSION: 1. Findings as described above.
--- NOTE | 2024-03-19 14:33 | HMCIMG ---
PELVIS 1-2VWS HISTORY: Pain COMPARISON: None TECHNIQUE: Frontal projection of the pelvis was obtained. FINDINGS: Vascular calcifications are seen in the bilateral hip joint space narrowing are seen There is no acute displaced fracture or dislocation. Degenerative changes are seen. IMPRESSION: 1. Findings as described above.
[2024-03-19] MEDS ORDERED: ACET-2079 PO (14:58)
[2024-03-19 15:11] VITALS: BP 153/71; PULSE 78; RESP 18; TEMP 98.1; O2SAT 98
== END 2024-03-19 15:34 | disposition home or self-care (01) ==
LOC: EDH 13:11
DX: S80.01XA Contusion of right knee, initial encounter (principal); Z79.02 Long term (current) use of antithrombotics/antiplatelets; Z79.82 Long term (current) use of aspirin; Z79.899 Other long term (current) drug therapy; W18.39XA Other fall on same level, initial encounter; Y93.89 Activity, other specified; Y92.89 Other specified places as the place of occurrence of the external cause; Y99.8 Other external cause status
CPT/HCPCS: 72170; 73562; 99284

== ENCOUNTER → 2024-05-12 | Outpatient (CLI) | payer OTHER, MEDICARE ==
[~2024-05-12] MED LIST changes: +ACET-2079 PO
--- NOTE | 2024-05-12 15:20 | HMCIMG ---
CT HEAD WITHOUT CONTRAST INDICATION: Disorientation, multiple falls TECHNIQUE: Noncontrast axial helical CT images from the vertex through the skull base using 5 mm slice thickness without contrast material. Coronal and sagittal reconstructions were also included. Dose reduction techniques was used using integrated, automated and adaptive dose reduction exposure control. CT was performed with one or more of the following dose reduction techniques: Automated exposure control, adjustment of the mA and/or kV according to patient size, or use of iterative reconstruction technique. COMPARISON: None FINDINGS: Scattered and coalescent subcortical and periventricular white matter low attenuating areas likely represent residual of chronic small vessel arteriopathy and/or remote vascular insult. Generalized mild cerebral cortical atrophy is present.. No evidence for abnormal extra-axial fluid collections or masses. The ventricles and sulci are normal in size and configuration. No evidence for intracranial parenchymal, epidural, or subdural hemorrhage, mass effect or midline shift. The broussard-white matter differentiation is well preserved. No secondary evidence to suggest acute ischemia. Mild calcific plaque is present along the urrutia of the cavernous segments of both internal carotid arteries. The brainstem and cerebellum appear normal. The visualized orbits appear unremarkable. The visible paranasal sinuses and mastoid air cells are clear. The calvarium appears normal. IMPRESSION: Chronic white matter ischemic changes, mild brain atrophy, and arteriosclerotic disease as described, without acute component.
== END | disposition home or self-care (01) ==
LOC: RAH 14:06
PROVIDERS: ATTEND Family Medicine
DX: S09.90XD Unspecified injury of head, subsequent encounter (principal); I65.23 Occlusion and stenosis of bilateral carotid arteries; G31.89 Other specified degenerative diseases of nervous system; G44.309 Post-traumatic headache, unspecified, not intractable; H53.9 Unspecified visual disturbance; R41.0 Disorientation, unspecified; I67.82 Cerebral ischemia; I70.90 Unspecified atherosclerosis; X58.XXXD Exposure to other specified factors, subsequent encounter
CPT/HCPCS: 70450

== ENCOUNTER → 2024-08-05 | Outpatient (CLI) | payer OTHER, MEDICARE ==
--- NOTE | 2024-08-06 08:38 | HMCIMG ---
Exam Type: MAMMO DX UNILATERAL RIGHT Clinical Information: 6mth follow-up/RT BREAST MICROCALCIFICATION Comparison: December 31, 2023 TECHNIQUE: Mammogram was performed with CC and MLO and ML projections. CAD was performed. CAD shows no worrisome regions. FINDINGS: The breasts are heterogeneously dense, which may obscure small masses.. No dominant mass or suspicious microcalcification identified. There is no nipple retraction or skin thickening. Benign-appearing calcifications are seen. The upper breast cluster of microcalcifications detected on prior examination is stable and on this examination has completely benign appearance. IMPRESSION: 1. No mammographic signs of malignancy. . 2. Routine follow-up recommended. BI-RADS: CATEGORY 2: BENIGN FINDINGS Note: A negative x-ray should not delay biopsy if a dominant or clinically suspicious mass is present, since 8-10% of cancers are not identified by mammography. Dense breasts, particularly, may obscure an underlying neoplasm.
== END | disposition home or self-care (01) ==
LOC: RAH 11:07
PROVIDERS: ATTEND Family Medicine
DX: R92.331 Mammographic heterogeneous density, right breast (principal); R92.0 Mammographic microcalcification found on diagnostic imaging of breast; R92.1 Mammographic calcification found on diagnostic imaging of breast
CPT/HCPCS: 77065